=== PATIENT | female | born 1980 | race Two or more races ===

== ENCOUNTER 2017-11-30 19:34 | Emergency (ER) | payer MEDICAID ==
[~2017-11-30] VITALS: Ht 152.4 cm; Wt 89.8 kg
[2017-11-30] MEDS ORDERED: Phenazopyridine 200mg tab ORAL ONE (19:45)
[2017-11-30] MEDS ORDERED: NKM (19:45)
--- NOTE | 2017-11-30 19:58 | Emergency Room Report ---
History of Present Illness General Chief Complaint: Female Urogenital Problems Source: Patient Present Illness HPI 37 YO Female presents to the ED c/o 02/08 in severity Dysuria. Patient is currently taking course of ciprofloxacin 200 mg 2 days. Patient states she is continuing to have her symptoms and she is also noticing cloudy urine. She states that dysuria worsened today which is why she presented to the emergency department. She denies abdominal pain or tenderness denies nausea, vomiting, fevers or chills she also denies low back pain. She denies reports ovaries surgically removed. Denies vaginal discharge. reports some mild itching in the groin area started today. hx of yeast infections following abx use. Denies CP, Palpitations, LOC, AMS, dizziness, Changes in Vision, Sensation, paresthesias, or a sudden severe headache. Allergies: Coded Allergies: No Known Allergies (Unverified , 11/30/17) Patient History Past Medical History: see triage record Past Surgical History: none Pertinent Family History: none Last Menstrual Period: surgical menopause Reviewed Nursing Documentation: PMH: Agreed; PSxH: Agreed Nursing Documentation-PMH Hx Gastrointestinal Problems: Yes - KIDNEY STONE Review of Systems All Other Systems: negative except mentioned in HPI Physical Exam Vital Signs Date Time Temp Pulse Resp B/P (MAP) Pulse Ox O2 Delivery O2 Flow Rate FiO2 11/30/17 19:41 98.0 89 16 113/77 96 Room Air 98.1 Sp02 EP Interpretation: reviewed, normal General Appearance: no apparent distress, alert, GCS 15, non-toxic Head: normocephalic, atraumatic Eyes: bilateral eye normal inspection, bilateral eye PERRL ENT: hearing grossly normal, normal voice Neck: full range of motion Respiratory: lungs clear, normal breath sounds, speaking full sentences Cardiovascular #1: regular rate, rhythm Gastrointestinal: normal bowel sounds, non tender, soft, no guarding Genitourinary: normal inspection, no CVA tenderness, deferred - pt. declines pelvic exam Musculoskeletal: back normal, gait/station normal, normal range of motion, non- tender Neurologic: alert, oriented x3, responsive, motor strength/tone normal, sensory intact, normal gait, speech normal, grossly normal Psychiatric: judgement/insight normal Skin: normal color, no rash, warm/dry, well hydrated Medical Decision Making PA Attestation Dr. yoon is my supervising Physician whom patient management has been discussed with. Diagnostic Impression: Primary Impression: UTI (urinary tract infection) Qualified Codes: N30.00 - Acute cystitis without hematuria ER Course 37 YO Female presents to the ED c/o 02/08 in severity Dysuria. Patient is currently taking course of ciprofloxacin 200 mg 2 days. Patient states she is continuing to have her symptoms and she is also noticing cloudy urine. She states that dysuria worsened today which is why she presented to the emergency department. She denies abdominal pain or tenderness denies nausea, vomiting, fevers or chills she also denies low back pain. She denies reports ovaries surgically removed. Denies vaginal discharge. reports some mild itching in the groin area started today. hx of yeast infections following abx use. Denies CP, Palpitations, LOC, AMS, dizziness, Changes in Vision, Sensation, paresthesias, or a sudden severe headache. Ddx considered but are not limited to UTi , Pyelo, STI, Stone, Cystitis Vital signs: are WNL, pt. is afebrile H&PE are most consistent with UTI ORDERS: - UA labs are attached - Positive for UTI ED INTERVENTIONS: -Pyridium PO -- D/w pt. I will change her abx to Macrobid, and if her C&S testing shows resistance, she will be contacted and rx'd the appropriate abx. DISCHARGE: At this time pt. is stable for d/c to home. Will provide printed patient care instructions, and any necessary prescriptions. Care plan and follow up instructions have been discussed with the patient prior to discharge. Labs Test 11/30/17 19:50 Urine Color Pale yellow Urine Appearance Clear Urine pH 6 (4.5-8.0) Urine Specific [place] 1.015 (1.005-1.035) Urine Protein Negative (NEGATIVE) Urine Glucose (UA) Negative (NEGATIVE) Urine Ketones Negative (NEGATIVE) Urine Occult Blood 2+ (NEGATIVE) Urine Nitrite Negative (NEGATIVE) Urine Bilirubin Negative (NEGATIVE) Urine Urobilinogen Normal MG/DL (0.0-1.0) Urine Leukocyte Esterase 3+ (NEGATIVE) Urine RBC 5-10 /HPF (0 - 2) Urine WBC 10-15 /HPF (0 - 2) Urine Squamous Epithelial Cells Few /LPF (NONE/OCC) Urine Bacteria Moderate /HPF (NONE) Last Vital Signs Date Time Temp Pulse Resp B/P (MAP) Pulse Ox O2 Delivery O2 Flow Rate FiO2 11/30/17 19:41 98.0 89 16 113/77 96 Room Air 98.1 Disposition: HOME, SELF-CARE Condition: Stable Scripts Phenazopyridine Hcl* (PYRIDIUM*) 200 Mg Tablet 200 MG ORAL THREE TIMES A DAY for 3 Days, #15 TAB 0 Refills Prov: Cat Hector 11/30/17 Fluconazole (FLUCONAZOLE) 100 Mg Tablet 100 MG ORAL DAILY for 3 Days, #3 TAB 0 Refills Prov: Cat Hector. 11/30/17 Nitrofurantoin Monohyd/M-Cryst* (MACROBID 100 MG*) 100 Mg Capsule 100 MG ORAL EVERY 12 HOURS for 5 Days, #10 CAP Prov: Cat Hector. 11/30/17 Patient Instructions: Urinary Tract Infection Additional Instructions: Take medications as directed. Pyridium will cause your urine to change color (Red/[place]), this is a normal side effect of the medication. Follow up with a Primary Care Provider in 3-5 days, even if your symptoms have resolved. --Please review list of primary care clinics, if you do not already have a primary care provider Return sooner to ED if new symptoms occur, or current symptoms become worse. - Please note that this Emergency Department Report was dictated using [employer] technology software, occasionally this can lead to erroneous entry secondary to interpretation by the dictation equipment. Cta Hector Nov 30, 2017 19:58
[2017-11-30 20:04] VITALS: BP 113/77
[2017-11-30 20:09] LABS: APPEARANCE,URINE CLEAR; BILIRUBIN, URINE NEGATIVE (NEGATIVE); COLOR,URINE PALE YELLOW; GLUCOSE, URINE (UA) NEGATIVE (NEGATIVE); KETONES,URINE NEGATIVE (NEGATIVE); LEUKOCYTE ESTERASE ,URINE 3+ (NEGATIVE); NITRITE,URINE NEGATIVE (NEGATIVE); PH,URINE 6 (4.5-8.0); PROTEIN,URINE NEGATIVE (NEGATIVE); UROBILINOGEN,URINE NORMAL MG/DL (0.0-1.0)
[2017-11-30] MEDS ORDERED: PHENAZOPYRIDIN200 MG ORAL (20:30)
[2017-11-30] MEDS ORDERED: FLUCONAZOLE100 MG ORAL (20:30)
[2017-11-30] MEDS ORDERED: NITROFURANTOIN100 M2 ORAL (20:30)
[2017-11-30 20:35] VITALS: BP 113/77
== END 2017-11-30 20:35 | disposition home or self-care (01) ==
LOC: EMR 20:00
DX: N39.0 Urinary tract infection, site not specified (principal); Z87.442 Personal history of urinary calculi
CPT/HCPCS: 81003; 87086; 99284

== ENCOUNTER 2018-04-11 12:38 | Emergency (ER) | payer MEDICAID ==
[~2018-04-11] VITALS: Ht 152.4 cm; Wt 85.7 kg
[~2018-04-11 12:38] MED LIST: FLUCONAZOLE100 MG ORAL; NITROFURANTOIN100 M2 ORAL; NKM; PHENAZOPYRIDIN200 MG ORAL
[2018-04-11 13:00] VITALS: BP 111/75
[2018-04-11 13:14] LABS: BASOPHILS % (AUTO) 0.8 % (0.0-2.0); EOSINOPHILS % (AUTO) 0.9 % (0.0-3.0); HEMATOCRIT 39.4 % (37.0-47.0); HEMOGLOBIN 12.9 G/DL (12.0-16.0); LYMPHOCYTES % (AUTO) 30.8 % (20.0-45.0); MEAN CORPUSCULAR VOLUME 84 FL (80-99); MONOCYTES % (AUTO) 7.2 % (1.0-10.0); NEUTROPHILS % (AUTO) 60.3 % (45.0-75.0); PLATELET COUNT 296 K/UL (150-450); RED BLOOD COUNT 4.69 M/UL (4.20-5.40); RED CELL DISTRIBUTION WIDTH 11.5 % (11.6-14.8); WHITE BLOOD COUNT 6.9 K/UL (4.8-10.8)
[2018-04-11] MEDS ORDERED: Lidocaine 2% Visc 15ml soln ORAL ONE (13:15)
[2018-04-11] MEDS ORDERED: Mylanta II UD 30ml ORAL ONE (13:15)
[2018-04-11] MEDS ORDERED: Dicyclomine HCl 10mg/5ml oral soln ORAL ONE (13:15)
[2018-04-11 13:18] LABS: APPEARANCE,URINE CLEAR; BILIRUBIN, URINE NEGATIVE (NEGATIVE); GLUCOSE, URINE (UA) NEGATIVE (NEGATIVE); KETONES,URINE NEGATIVE (NEGATIVE); LEUKOCYTE ESTERASE ,URINE 2+ (NEGATIVE); NITRITE,URINE NEGATIVE (NEGATIVE); PH,URINE 5 (4.5-8.0); PROTEIN,URINE NEGATIVE (NEGATIVE); UROBILINOGEN,URINE NORMAL MG/DL (0.0-1.0)
[2018-04-11 13:19] LABS: COLOR,URINE YELLOW
[2018-04-11 13:24] LABS: ANION GAP 8 mmol/L (5-15); BLOOD UREA NITROGEN 13 mg/dL (7-18); CALCIUM 9.3 MG/DL (8.5-10.1); CARBON DIOXIDE 28 MMOL/L (21-32); CHLORIDE 103 MMOL/L (98-107); CREATININE 0.8 MG/DL (0.55-1.30); POTASSIUM 3.5 MMOL/L (3.5-5.1); SODIUM 139 MMOL/L (136-145)
[2018-04-11 13:28] LABS: ALANINE AMINOTRANSFERASE 24 U/L (12-78); ALBUMIN 3.7 G/DL (3.4-5.0); ALBUMIN/GLOBULIN RATIO 0.9 (1.0-2.7); ALKALINE PHOSPHATASE 66 U/L (46-116); ASPARTATE AMINO TRANSFERASE 16 U/L (15-37); BILIRUBIN,TOTAL 0.4 MG/DL (0.2-1.0)
[2018-04-11] MEDS ORDERED: ONDANSETRON ODT4 MG BC (13:48)
[2018-04-11] MEDS ORDERED: DICYCLOMINE HCL10 MG PO (13:48)
[2018-04-11] MEDS ORDERED: ZANTAC150 MG ORAL (13:48)
[2018-04-11 14:07] VITALS: BP 111/75
--- NOTE | 2018-04-13 23:21 | Emergency Room Report ---
History of Present Illness General Chief Complaint: Abdominal Pain Source: Patient Present Illness HPI 37-year-old female presents ED complaining of abdominal pain 3 days. Pain is cramping, 7 out of 10, nonradiating. Notes multiple episodes of vomiting and diarrhea. Denies recent travel. Denies recent antibiotic use. Denies fevers chills. Denies chest pain or shortness of breath. No other aggravating relieving factors. Denies any other associated symptoms Allergies: Coded Allergies: No Known Allergies (Unverified , 11/30/17) Patient History Past Medical History: none Past Surgical History: none Pertinent Family History: none Social History: Denies: smoking, alcohol use, drug use Last Menstrual Period: partial hystrectomy Now: No Immunizations: UTD Reviewed Nursing Documentation: PMH: Agreed; PSxH: Agreed Nursing Documentation-PMH Past Medical History: No Stated History Hx Gastrointestinal Problems: Yes - KIDNEY STONE Review of Systems All Other Systems: negative except mentioned in HPI Physical Exam Vital Signs Date Time Temp Pulse Resp B/P (MAP) Pulse Ox O2 Delivery O2 Flow Rate FiO2 04/11/18 12:43 98.3 62 14 136/75 99 Room Air 98.2 Sp02 EP Interpretation: reviewed, normal General Appearance: no apparent distress, alert, GCS 15, non-toxic Head: normocephalic, atraumatic Eyes: bilateral eye normal inspection, bilateral eye PERRL ENT: hearing grossly normal, normal pharynx, no angioedema, normal voice Neck: full range of motion, supple/symm/no masses Respiratory: chest non-tender, lungs clear, normal breath sounds, speaking full sentences Cardiovascular #1: regular rate, rhythm, no edema Cardiovascular #2: 2+ carotid (R), 2+ carotid (L), 2+ radial (R), 2+ radial (L) , 2+ dorsalis pedis (R), 2+ dorsalis pedis (L) Gastrointestinal: normal bowel sounds, non tender, soft, non-distended, no guarding, no rebound Rectal: deferred Genitourinary: normal inspection, no CVA tenderness Musculoskeletal: back normal, gait/station normal, normal range of motion, non- tender Neurologic: alert, oriented x3, responsive, motor strength/tone normal, sensory intact, speech normal Psychiatric: judgement/insight normal, memory normal, mood/affect normal, no suicidal/homicidal ideation Reflexes: 3+ bicep (R), 3+ bicep (L), 3+ tricep (R), 3+ tricep (L), 3+ knee (R) , 3+ knee (L) Skin: normal color, no rash, warm/dry, well hydrated Lymphatic: no adenopathy Medical Decision Making Diagnostic Impression: Primary Impression: Gastroenteritis ER Course Hospital Course 37-year-old F presents to ED with cramping abdominal pain with vomiting, diarrhea differential diagnosis: gastritis, SBO, cholecystits, gastroenteritis Clinical course Patient placed on stretcher. On telemetry monitor. After initial history and physical I ordered labs, IV fluids, zofran, pepcid and GI cocktail Labs - no leukocytosis, electrolytes ok, LFTs normal, UA unremarkable Upon reassessment, patient states pain has improved. findings consistent with gastroenteritis Discussed findings with patient. Safely discharged without close outpatient follow-up I feel this is a highly complex case requiring extensive working including EKG/ Rhythm strip, Xray/CT/US, Blood/urine lab work, repeat exams while in ED, and administration of strong opiates/narcotics for pain control, admission to hospital or close patient follow up. Diagnosis - gastroenteritis Stable and discharged to home with prescriptions for Zantac, bentyl, zofran. Followup with PMD. Return to ED if symptoms recur or worsen Labs Test 04/11/18 12:55 White Blood Count 6.9 K/UL (4.8-10.8) Red Blood Count 4.69 M/UL (4.20-5.40) Hemoglobin 12.9 G/DL (12.0-16.0) Hematocrit 39.4 % (37.0-47.0) Mean Corpuscular Volume 84 FL (80-99) Mean Corpuscular Hemoglobin 27.6 PG (27.0-31.0) Mean Corpuscular Hemoglobin Concent 32.8 G/DL (32.0-36.0) Red Cell Distribution Width 11.5 % (11.6-14.8) Platelet Count 296 K/UL (150-450) Mean Platelet Volume 7.5 FL (6.5-10.1) Neutrophils (%) (Auto) 60.3 % (45.0-75.0) Lymphocytes (%) (Auto) 30.8 % (20.0-45.0) Monocytes (%) (Auto) 7.2 % (1.0-10.0) Eosinophils (%) (Auto) 0.9 % (0.0-3.0) Basophils (%) (Auto) 0.8 % (0.0-2.0) Urine Color Yellow Urine Appearance Clear Urine pH 5 (4.5-8.0) Urine Specific [place] 1.025 (1.005-1.035) Urine Protein Negative (NEGATIVE) Urine Glucose (UA) Negative (NEGATIVE) Urine Ketones Negative (NEGATIVE) Urine Blood 3+ (NEGATIVE) Urine Nitrite Negative (NEGATIVE) Urine Bilirubin Negative (NEGATIVE) Urine Urobilinogen Normal MG/DL (0.0-1.0) Urine Leukocyte Esterase 2+ (NEGATIVE) Urine RBC 0-2 /HPF (0 - 2) Urine WBC 0-2 /HPF (0 - 2) Urine Squamous Epithelial Cells Occasional /LPF Urine Bacteria Occasional /HPF (NONE) Urine HCG, Qualitative Negative (NEGATIVE) Sodium Level 139 MMOL/L (136-145) Potassium Level 3.5 MMOL/L (3.5-5.1) Chloride Level 103 MMOL/L (98-107) Carbon Dioxide Level 28 MMOL/L (21-32) Anion Gap 8 mmol/L (5-15) Blood Urea Nitrogen 13 mg/dL (7-18) Creatinine 0.8 MG/DL (0.55-1.30) Estimat Glomerular Filtration Rate > 60 mL/min (>60) Glucose Level 129 MG/DL (74-106) Calcium Level 9.3 MG/DL (8.5-10.1) Total Bilirubin 0.4 MG/DL (0.2-1.0) Aspartate Amino Transf (AST/SGOT) 16 U/L (15-37) Alanine Aminotransferase (ALT/SGPT) 24 U/L (12-78) Alkaline Phosphatase 66 U/L (46-116) Total Protein 7.9 G/DL (6.4-8.2) Albumin 3.7 G/DL (3.4-5.0) Globulin 4.2 g/dL Albumin/Globulin Ratio 0.9 (1.0-2.7) Lipase 115 U/L (73-393) Last Vital Signs Date Time Temp Pulse Resp B/P (MAP) Pulse Ox O2 Delivery O2 Flow Rate FiO2 04/11/18 14:07 98.2 60 14 111/75 99 Room Air 98.2 Status: improved Disposition: HOME, SELF-CARE Condition: Stable Scripts Dicyclomine Hcl* (DICYCLOMINE HCL*) 10 Mg Capsule 10 MG PO QID, #20 CAP Prov: Seth Barron MD 04/11/18 Ondansetron Odt* (ZOFRAN ODT*) 4 Mg Tab.rapdis 4 MG BC EVERY 6 HOURS PRN for Nausea & Vomiting, #10 TAB 0 Refills Prov: Seth Barron MD 04/11/18 Ranitidine Hcl* (ZANTAC*) 150 Mg Tablet 150 MG ORAL DAILY, #30 TAB 0 Refills Prov: Seth Barron MD 04/11/18 Patient Instructions: Viral Gastroenteritis, Adult, [id number] Seth Barron MD Apr 13, 2018 23:21
== END 2018-04-11 14:07 | disposition home or self-care (01) ==
LOC: EMR 13:23
DX: K52.9 Noninfective gastroenteritis and colitis, unspecified (principal); R10.9 Unspecified abdominal pain; Z90.711 Acquired absence of uterus with remaining cervical stump
CPT/HCPCS: 36415; 80053; 81003; 81025; 83690; 85025; 96361; 96374; 96375; 99284; J2405; S0028

== ENCOUNTER 2018-05-08 20:37 | Emergency (ER) | payer MEDICAID ==
[~2018-05-08] VITALS: Ht 152.4 cm; Wt 89.8 kg
[~2018-05-08 20:37] MED LIST changes: +DICYCLOMINE HCL10 MG PO; +ONDANSETRON ODT4 MG BC; +ZANTAC150 MG ORAL
--- NOTE | 2018-05-08 21:12 | Emergency Room Report ---
History of Present Illness General Chief Complaint: Abdominal Pain Source: Patient Present Illness HPI Is a 37-year-old female with a history of section and hysterectomy. She also history of kidney stone. She presents with chief complaint of sharp right flank pain starting this afternoon. Intermittently. Pain is 9 out of 10. Lasting a few seconds to minutes. Minimal pain now. No nausea no vomiting. No fever or chills. Started in the right upper back going down to the flank area. No urinary complaint. Allergies: Coded Allergies: No Known Allergies (Unverified , 11/30/17) Patient History Past Medical History: see triage record, old chart reviewed Past Surgical History: none, , hysterectomy Pertinent Family History: none Social History: Denies: smoking Last Menstrual Period: n/a Now: No Immunizations: other Reviewed Nursing Documentation: PMH: Agreed; PSxH: Agreed Nursing Documentation-PMH Past Medical History: No History, Except For Hx Gastrointestinal Problems: Yes - KIDNEY STONE Review of Systems Eye: Denies: eye pain, blurred vision ENT: Denies: ear pain, nose congestion, throat swelling Respiratory: Denies: cough, shortness of breath Cardiovascular: Denies: chest pain, palpitations Gastrointestinal: Reports: abdominal pain; Denies: diarrhea, nausea, vomiting Musculoskeletal: Denies: back pain, joint pain Skin: Denies: rash Neurological: Denies: headache, numbness Endocrine: Denies: increased thirst, increased urine Hematologic/Lymphatic: Denies: easy bruising All Other Systems: negative except mentioned in HPI Physical Exam Vital Signs Date Time Temp Pulse Resp B/P (MAP) Pulse Ox O2 Delivery O2 Flow Rate FiO2 05/08/18 20:56 98.4 73 16 122/90 95 Room Air vitals normal Sp02 EP Interpretation: reviewed, normal General Appearance: well appearing, no apparent distress, alert Head: normocephalic, atraumatic Eyes: bilateral eye PERRL, bilateral eye EOMI ENT: hearing grossly normal, normal pharynx Neck: full range of motion, supple, no meningismus Respiratory: chest non-tender, lungs clear, normal breath sounds Cardiovascular #1: regular rate, rhythm, no murmur Gastrointestinal: normal bowel sounds, non tender, no mass, no organomegaly, no bruit, non-distended Musculoskeletal: back normal, gait/station normal, normal range of motion Psychiatric: mood/affect normal Skin: warm/dry Medical Decision Making Diagnostic Impression: Primary Impression: UTI (urinary tract infection) Qualified Codes: N30.00 - Acute cystitis without hematuria Additional Impression: Flank pain ER Course Patient with right flank pain. No evidence of ureteral stone. She does have hematuria in her urine and possible infection. This may be secondary to UTI/ hematuria versus passed kidney stone. She looks comfortable. No evidence of any gallbladder issue. No evidence any sepsis. We'll discharge home. CT/MRI/US Diagnostic Results CT/MRI/US Diagnostic Results : Imaging Test Ordered: CT abdomen and pelvis Impression read by radiologist. Tiny nonobstructing rt kidney stone Last Vital Signs Date Time Temp Pulse Resp B/P (MAP) Pulse Ox O2 Delivery O2 Flow Rate FiO2 05/08/18 20:56 98.4 73 16 122/90 95 Room Air Status: improved Disposition: HOME, SELF-CARE Condition: Stable Scripts Ibuprofen* (MOTRIN*) 600 Mg Tablet 600 MG ORAL THREE TIMES A DAY, #30 TAB 0 Refills Prov: Jose Guadalupe Hoffman MD 05/08/18 Cephalexin* (KEFLEX*) 500 Mg Capsule 500 MG ORAL THREE TIMES A DAY PRN for id, #21 CAP Prov: Jsoe Guadalupe Hoffman MD 05/08/18 Referrals: NOT CHOSEN IPA/,REFERRING (PCP) Patient Instructions: Abdominal Pain, Adult Additional Instructions: Follow-up with your doctor in 2-3 days. Return of worse. Jose Guadalupe Hoffman MD May 08, 2018 21:12
[2018-05-08 21:22] LABS: APPEARANCE,URINE CLOUDY; BILIRUBIN, URINE NEGATIVE (NEGATIVE); COLOR,URINE PALE YELLOW; GLUCOSE, URINE (UA) NEGATIVE (NEGATIVE); KETONES,URINE NEGATIVE (NEGATIVE); LEUKOCYTE ESTERASE ,URINE 2+ (NEGATIVE); NITRITE,URINE NEGATIVE (NEGATIVE); PH,URINE 7 (4.5-8.0); PROTEIN,URINE 2+ (NEGATIVE); UROBILINOGEN,URINE NORMAL MG/DL (0.0-1.0)
[2018-05-08] MEDS ORDERED: Cephalexin 500mg cap ORAL ONE (22:00)
[2018-05-08] MEDS ORDERED: CEPHALEXIN500 MG ORAL (22:11)
[2018-05-08] MEDS ORDERED: IBUPROFEN600 MG ORAL (22:11)
[2018-05-08 22:15] VITALS: BP 124/78
[2018-05-08 22:25] VITALS: BP 124/78
--- NOTE | 2018-05-09 08:45 | Diagnostic Imaging Report ---
Indication: Abdominal pain Technique: Continuous helical transaxial imaging of the abdomen and pelvis was obtained from the lung bases to the pubic symphysis. No intravenous contrast was administered. Coronal 2-D reformats were also obtained. Automatic Exposure Control was utilized. Total Dose length Product (DLP): 1132.[address] Dose Index Volume (CTDIvol): 19.75 mGy Comparison: none Findings: The lung bases are clear. Cardiomegaly is present. There is a small hiatal hernia. Gallbladder is contracted. Tiny nonobstructive stones demonstrated in the right kidney. There is no hydronephrosis. Appendix is normal. There is no free fluid or free air. The bladder is nondistended. IMPRESSION: Nonobstructive nephrolithiasis in the right kidney. Normal appendix. Other incidental findings as above The CT scanner at [facility] is accredited by the [employer] and the scans are performed using dose optimization techniques as appropriate to a performed exam including Automatic Exposure control.
== END 2018-05-08 22:29 | disposition home or self-care (01) ==
LOC: EMR 20:52
DX: N30.00 Acute cystitis without hematuria (principal); Z87.442 Personal history of urinary calculi; Z90.710 Acquired absence of both cervix and uterus
CPT/HCPCS: 74176; 81003; 81025; 87086; 87181; 99284

== ENCOUNTER 2018-07-05 17:19 | Emergency (ER) | payer MEDICAID ==
[~2018-07-05] VITALS: Ht 157.5 cm; Wt 85.7 kg
[~2018-07-05 17:19] MED LIST changes: +CEPHALEXIN500 MG ORAL; +IBUPROFEN600 MG ORAL
[2018-07-05 17:35] VITALS: BP 111/80
[2018-07-05] MEDS ORDERED: NKM (17:35)
--- NOTE | 2018-07-05 17:35 | NUR ---
ED Nurse Note: A/OX4. Ambulated in to ER due to bodyache, runny nose and coughing for one week and also c/o burning urination and lower back pain.
[2018-07-05] MEDS ORDERED: Phenazopyridine 200mg tab ORAL ONE (17:45)
[2018-07-05 18:11] LABS: APPEARANCE,URINE SLIGHTLY CLOUDY; BILIRUBIN, URINE NEGATIVE (NEGATIVE); COLOR,URINE PALE YELLOW; GLUCOSE, URINE (UA) NEGATIVE (NEGATIVE); KETONES,URINE NEGATIVE (NEGATIVE); LEUKOCYTE ESTERASE ,URINE 2+ (NEGATIVE); NITRITE,URINE POSITIVE (NEGATIVE); PH,URINE 6 (4.5-8.0); PROTEIN,URINE NEGATIVE (NEGATIVE); UROBILINOGEN,URINE NORMAL MG/DL (0.0-1.0)
--- NOTE | 2018-07-05 18:12 | Emergency Room Report ---
History of Present Illness General Chief Complaint: Flu Like Symptoms Source: Patient, Medical Record Present Illness HPI 38-year-old female presents to the emergency department complaining of 7 out of 10 in severity body aches, cough, sore throat and pressure in the left ear times one week. Patient also reports some chills she denies fevers. Patient states that 2 days ago she began having dysuria as she denies hematuria she does report urinary frequency she denies urgency, abdominal pain, nausea or vomiting. Patient denies . Denies neck pain/stiffness, irritability, photophobia dehydration, Pt. reports nasal congestion and sinus pressure as well. Allergies: Coded Allergies: No Known Allergies (Unverified , 11/30/17) Patient History Past Medical History: see triage record Past Surgical History: none Pertinent Family History: none Now: No Reviewed Nursing Documentation: PMH: Agreed; PSxH: Agreed Nursing Documentation-PMH Hx Gastrointestinal Problems: Yes - KIDNEY STONE Review of Systems All Other Systems: negative except mentioned in HPI Physical Exam Vital Signs Date Time Temp Pulse Resp B/P (MAP) Pulse Ox O2 Delivery O2 Flow Rate FiO2 07/05/18 17:30 98.2 61 16 111/80 99 Room Air Sp02 EP Interpretation: reviewed, normal General Appearance: no apparent distress, alert, GCS 15, non-toxic Head: normocephalic, atraumatic Eyes: bilateral eye normal inspection, bilateral eye PERRL ENT: hearing grossly normal, normal pharynx, normal voice, TMs + canals normal , uvula midline, moist mucus membranes, nasal congestion, pharyngeal erythema, other - no tonsillar exudates Neck: full range of motion, no meningismus Respiratory: chest non-tender, lungs clear, normal breath sounds, no respiratory distress, no accessory muscle use, no wheezing, speaking full sentences Cardiovascular #1: regular rate, rhythm Gastrointestinal: normal bowel sounds, non tender, soft Genitourinary: normal inspection, no CVA tenderness Musculoskeletal: back normal, gait/station normal, normal range of motion, non- tender Neurologic: alert, oriented x3, responsive, motor strength/tone normal, sensory intact, speech normal, grossly normal Psychiatric: judgement/insight normal Skin: normal color, no rash, warm/dry, well hydrated Lymphatic: no adenopathy Medical Decision Making PA Attestation Dr. yoon is my supervising Physician whom patient management has been discussed with. Diagnostic Impression: Primary Impression: UTI (urinary tract infection) Qualified Codes: N30.01 - Acute cystitis with hematuria Additional Impression: URI with cough and congestion ER Course 38-year-old female presents to the emergency department complaining of 7 out of 10 in severity body aches, cough, sore throat and pressure in the left ear times one week. Patient also reports some chills she denies fevers. Patient states that 2 days ago she began having dysuria as she denies hematuria she does report urinary frequency she denies urgency, abdominal pain, nausea or vomiting. Patient denies . Denies neck pain/stiffness, irritability, photophobia dehydration, Pt. reports nasal congestion and sinus pressure as well. Ddx considered but are not limited to URI, pneumonia, PE, strep pharyngitis, meningitis,UTI, [place] just to name a few Vital signs: Pt. is afebrile, the remaining VS are WNL H&PE are most consistent with URI- no meningeal signs, oropharynx is not involved, no evidence of bacterial infection at this time. ORDERS: -UA: Nitrite Positive ED INTERVENTIONS: None required at this time. DISCHARGE: At this time pt. is stable for d/c to home. Will provide printed patient care instructions, and any necessary prescriptions. Care plan and follow up instructions have been discussed with the patient prior to discharge. Labs Test 07/05/18 17:45 Urine Color Pale yellow Urine Appearance Slightly cloudy Urine pH 6 (4.5-8.0) Urine Specific [place] 1.025 (1.005-1.035) Urine Protein Negative (NEGATIVE) Urine Glucose (UA) Negative (NEGATIVE) Urine Ketones Negative (NEGATIVE) Urine Blood Negative (NEGATIVE) Urine Nitrite Positive (NEGATIVE) Urine Bilirubin Negative (NEGATIVE) Urine Urobilinogen Normal MG/DL (0.0-1.0) Urine Leukocyte Esterase 2+ (NEGATIVE) Urine HCG, Qualitative Negative (NEGATIVE) Last Vital Signs Date Time Temp Pulse Resp B/P (MAP) Pulse Ox O2 Delivery O2 Flow Rate FiO2 07/05/18 17:35 98.2 60 16 111/80 99 Room Air Disposition: HOME, SELF-CARE Condition: Stable Scripts Nitrofurantoin Monohyd/M-Cryst* (MACROBID 100 MG*) 100 Mg Capsule 100 MG ORAL EVERY 12 HOURS for 5 Days, #10 CAP Prov: Hector,Cat PA 07/05/18 Guaifenesin (Guaifenesin) 1,200 Mg Tab.er.12h 1200 MG PO Q12HR for 7 Days, #14 TAB Prov: Cat Hector 07/05/18 Phenazopyridine Hcl* (PYRIDIUM*) 200 Mg Tablet 200 MG ORAL THREE TIMES A DAY for 2 Days, #6 TAB 0 Refills Prov: Cat Hector 07/05/18 Acetaminophen* (TYLENOL EXTRA STRENGTH*) 500 Mg Tablet 500 MG ORAL Q6H, #20 TAB 0 Refills Prov: Cat Hector 07/05/18 Benzonatate* (TESSALON PERLE*) 100 Mg Capsule 100 MG ORAL THREE TIMES A DAY, #30 PERLE Prov: Cat Hector 07/05/18 Cetirizine Hcl/Pseudoephedrine (ZYRTEC-D TABLET) 1 Each Tab.er.12h 1 EACH ORAL Q12HR for 7 Days, #14 TAB Prov: Cat Hector 07/05/18 Codeine/Promethazine Hcl* (PROMETHAZINE-CODEINE SYRUP*) 118 Ml Syrup 5 ML ORAL Q6H PRN for For Cough, #120 ML 0 Refills Prov: Cat Hector 07/05/18 Departure Forms: Return to Work Return to Work in (Days): 3 Return to Work Date: Jul 09, 2018 Work Restrictions: None Other Restrictions: May return Sooner if Symptoms have resolved. Return to Full Activity: Jul 09, 2018 Patient Instructions: Urinary Tract Infection, [id number] Additional Instructions: Take medications as directed. Follow up with a Primary Care Provider in 3-5 days, even if your symptoms have resolved. --Please review list of primary care clinics, if you do not already have a primary care provider Return sooner to ED if new symptoms occur, or current symptoms become worse. Do not drink alcohol, drive, or operate heavy machinery while taking Cough Syrup as this may cause drowsiness. - Please note that this Emergency Department Report was dictated using [employer] technology software, occasionally this can lead to erroneous entry secondary to interpretation by the dictation equipment. Cat Hector Jul 05, 2018 18:12
[2018-07-05] MEDS ORDERED: TYLENOL EXTRA500 MG ORAL (18:22)
[2018-07-05] MEDS ORDERED: ZYRTEC-D TABLE1 EACH ORAL (18:22)
[2018-07-05] MEDS ORDERED: TESSALON PERLE100 MG ORAL (18:22)
[2018-07-05] MEDS ORDERED: PROMETHAZINE-C118 M1 ORAL (18:22)
[2018-07-05] MEDS ORDERED: PHENAZOPYRIDIN200 MG ORAL (18:22)
[2018-07-05] MEDS ORDERED: GUAIFENESIN1200 MG PO (18:26)
[2018-07-05 18:32] VITALS: BP 111/80
[2018-07-05] MEDS ORDERED: NITROFURANTOIN100 M2 ORAL (18:33)
--- NOTE | 2018-07-05 18:33 | NUR ---
ED Nurse Note: A/Ox4. Pt is cleared by NICO Shelton. DC instruction and prescription given, pt verbalized understanding. ID wrist band removed. Denies any pain at this time. All belongings taken by pt. Pt ambulated out of ER with steady gait.
== END 2018-07-05 18:35 | disposition home or self-care (01) ==
LOC: EMR 18:23
DX: J06.9 Acute upper respiratory infection, unspecified (principal); N30.01 Acute cystitis with hematuria; Z87.442 Personal history of urinary calculi
CPT/HCPCS: 81003; 81025; 87086; 87181; 99283

== ENCOUNTER 2018-08-20 17:59 | Emergency (ER) | payer MEDICAID ==
[~2018-08-20] VITALS: Ht 152.4 cm; Wt 85.7 kg
[~2018-08-20 17:59] MED LIST changes: +GUAIFENESIN1200 MG PO; +PROMETHAZINE-C118 M1 ORAL; +TESSALON PERLE100 MG ORAL; +TYLENOL EXTRA500 MG ORAL; +ZYRTEC-D TABLE1 EACH ORAL
[2018-08-20 18:03] VITALS: BP 105/69
[2018-08-20] MEDS ORDERED: NKM (18:06)
--- NOTE | 2018-08-20 18:13 | NUR ---
ED Nurse Note: Pt came in due to headache, sore throat and body ache and ear ache x 4 days. No nausea and vomiting.
[2018-08-20] MEDS ORDERED: Ketorolac 30mg Inj IM ONE (18:30)
--- NOTE | 2018-08-20 18:39 | Emergency Room Report ---
History of Present Illness General Chief Complaint: Flu Like Symptoms Source: Patient Present Illness HPI 38-year-old female patient presents the ER with multiple complaints. Patient complaining of headache for the past 4 days. Patient reports that headache over her bilateral frontal sinuses and now all over her head. Denies fever, chest pain, shortness of breath. Denies vomiting or vision changes. Reports headache was slow in onset. Denies thunderclap BAEZ. States has been taking Motrin without relief of symptoms. Reports history of sinus infection however states that this feels worse. Also complaining of bilateral earache and sore throat. Denies cough. Denies abdominal pain. Denies bowel or bladder continence. Also complains of possible UTI. Reports mild discomfort with urination. Denies , reports history of hysterectomy. Denies vaginal discharge. Denies hematuria. Denies vomiting or diarrhea. States did not receive flu vaccine this year. Denies other aggravating or relieving factors. Denies tinnitus. Allergies: Coded Allergies: No Known Allergies (Unverified , 08/20/18) Patient History Past Medical History: see triage record Last Menstrual Period: 3 YEARS AGO Now: No - S/P HYSTERECTOMY Reviewed Nursing Documentation: PMH: Agreed; PSxH: Agreed Nursing Documentation-PMH Past Medical History: No Stated History Hx Gastrointestinal Problems: Yes - KIDNEY STONE Review of Systems All Other Systems: negative except mentioned in HPI Physical Exam Vital Signs Date Time Temp Pulse Resp B/P (MAP) Pulse Ox O2 Delivery O2 Flow Rate FiO2 08/20/18 18:03 98.1 73 16 105/69 96 Room Air Sp02 EP Interpretation: reviewed, normal General Appearance: well appearing, no apparent distress, alert, GCS 15, non- toxic Head: normocephalic, atraumatic, other - Frontal and maxillary sinuses tender to palpation bilaterally Eyes: bilateral eye normal inspection, bilateral eye PERRL ENT: hearing grossly normal, normal pharynx, no angioedema, normal voice, TMs + canals normal, uvula midline, moist mucus membranes Neck: full range of motion, no meningismus, no bony tend Respiratory: lungs clear, normal breath sounds, no rhonchi, no respiratory distress, no accessory muscle use, no wheezing, speaking full sentences Cardiovascular #1: regular rate, rhythm, no edema Gastrointestinal: normal bowel sounds, non tender, soft, no mass, non-distended , no guarding, no rebound Genitourinary: no CVA tenderness Neurologic: alert, oriented x3, responsive, automatic beam warper tender III-XII nml as tested, motor strength/tone normal, SLR negative, sensory intact, cerebellar normal, normal gait, speech normal Skin: no rash Medical Decision Making PA Attestation Dr. Baig is my supervising Physician whom patient management has been discussed with. Diagnostic Impression: Primary Impression: Sinusitis Additional Impressions: Headache Urinary tract infection Sore throat ER Course Pt presents to ED c/o dysuria, headache, sore throat, earache. DDX considered but are not limited to cystitis, pyelonephritis, yeast infection , otitis media, otitis externa, migraine, tension headache, cluster headache sinusitis, sinus headache, URI, influenza, step throat, pharyngitis, laryngitis. No abdominal TTP, negative obturator, negative Duran, negative Rovsing, low suspicion for cholecystitis or appendicitis, does not require imaging or labs at this time. No focal neuro deficits, cranial nerves intact as tested, denies sudden onset or thunderclap headache, low suspicion for SAH, does not require CT head at this time. Negative Kernig, negative Brudzinski, no fever, low suspicion for meningitis. VITAL SIGNS are WNL, patient is afebrile. Ordered UA. ER COURSE Provide with Toradol, Benadryl, Reglan for headache symptoms. Frontal maxillary sinuses tender palpation, likely cluster headache, will provide patient with medication to treat. Low suspicion for peritonsillar abscess, no neck stiffness, no hot potato voice , no stridor. Physical exam shows no tonsillar swelling, no exudates, no LAD, hx of cough, no fever, low suspicion for Strep Throat per [facility] criteria. Does not require abx at this time. Salt water gargles. UA results show elevated WBCs and bacteria, indicate UTI, will treat with abx. If concern for STI, followup with STI clinic for testing and treatment. Denies STI concern. Patient is resting comfortably in chair, nontoxic appearing, in no acute distress. Patient states they feel better and is ready to go home. Patient reports pain symptoms improve while in the ER. Okay for outpatient follow-up and treatment. DISCHARGE Patient is stable for discharge. Patient resting comfortably, in no acute distress, nontoxic appearing, talking without difficulty. Will provide with patient care instructions and any necessary prescriptions. Patient understands and agrees to treatment plan. Patient encouraged to drink plenty of fluids. Patient to take medication as instructed. Care plan and follow-up instructions provided. Patient questions asked and answered. Reports understanding and agreement to treatment plan. Patient instructed to follow-up with primary care provider in 3 - 5 days. ER precautions given. Patient instructed to return to ER immediately for any new or worsening of symptoms. Including but not limited to fever, abdominal pain , intractable vomiting. - Please note that this Emergency Department Report was dictated using [employer] operator [employer]in[employer] technology software, occasionally this can lead to erroneous entry secondary to interpretation by the dictation equipment. Labs Test 08/20/18 18:47 Urine Color Pale yellow Urine Appearance Clear Urine pH 5 (4.5-8.0) Urine Specific [place] 1.020 (1.005-1.035) Urine Protein Negative (NEGATIVE) Urine Glucose (UA) Negative (NEGATIVE) Urine Ketones Negative (NEGATIVE) Urine Blood Negative (NEGATIVE) Urine Nitrite Negative (NEGATIVE) Urine Bilirubin Negative (NEGATIVE) Urine Urobilinogen Normal MG/DL (0.0-1.0) Urine Leukocyte Esterase 2+ (NEGATIVE) Urine RBC 0-2 /HPF (0 - 2) Urine WBC 5-10 /HPF (0 - 2) Urine Squamous Epithelial Cells Few /LPF (NONE/OCC) Urine Bacteria Moderate /HPF (NONE) Last Vital Signs Date Time Temp Pulse Resp B/P (MAP) Pulse Ox O2 Delivery O2 Flow Rate FiO2 08/20/18 18:03 98.1 73 16 105/69 96 Room Air Status: improved Disposition: HOME, SELF-CARE Condition: Stable Scripts Fluticasone Propionate (Flonase Allergy Relief) 9.9 Ml [place].susp 9.9 ML NS BID, #9.9 ML Prov: Dedrick Sheppard 08/20/18 Loratadine (CLARITIN) 10 Mg Tab.rapdis 10 MG ORAL DAILY, #30 TAB Prov: Dedrick Sheppard.A. 08/20/18 Aspirin/Acetaminophen/Caffeine (EXCEDRIN MIGRAINE CAPLET) 1 Each Tablet 1 EACH PO TID, #30 TAB Prov: Dedrick Sheppard.A. 08/20/18 Cephalexin* (KEFLEX*) 500 Mg Capsule 500 MG ORAL EVERY 12 HOURS, #14 CAP 0 Refills Prov: Dedrick Sheppard 08/20/18 Referrals: NON PHYSICIAN (PCP) Patient Instructions: Earache, General Headache Without Cause, [id number], Sinus Headache, Sinusitis, Adult, [id number], Sore Throat, [id number], Urinary Tract Infection, [id number] Additional Instructions: Followup with primary care provider in 3 -5 days. Discuss referral to neurology. Take Tylenol for pain and fever symptoms. Salt water gargles for sore throat. Drink plenty of water. Take medications as directed. Patient questions asked and answered. ER precautions given, patient instructed to return to ER immediately for any new or worsening of symptoms including but not limited to intractable vomiting, difficulty breathing, inability to eat. Dedrick Sheppard Aug 20, 2018 18:39
[2018-08-20 18:59] LABS: APPEARANCE,URINE CLEAR; BILIRUBIN, URINE NEGATIVE (NEGATIVE); COLOR,URINE PALE YELLOW; GLUCOSE, URINE (UA) NEGATIVE (NEGATIVE); KETONES,URINE NEGATIVE (NEGATIVE); LEUKOCYTE ESTERASE ,URINE 2+ (NEGATIVE); NITRITE,URINE NEGATIVE (NEGATIVE); PH,URINE 5 (4.5-8.0); PROTEIN,URINE NEGATIVE (NEGATIVE); UROBILINOGEN,URINE NORMAL MG/DL (0.0-1.0)
--- NOTE | 2018-08-20 19:19 | NUR ---
HAND-OFF: Report given to Raissa HAWKINS.
[2018-08-20] MEDS ORDERED: FLONASE ALLERG9.9 ML NS (19:21)
[2018-08-20] MEDS ORDERED: EXCEDRIN MIGRA1 EAC1 PO (19:21)
[2018-08-20] MEDS ORDERED: CLARITIN10 M1 ORAL (19:21)
[2018-08-20] MEDS ORDERED: CEPHALEXIN500 MG ORAL (19:21)
--- NOTE | 2018-08-20 19:33 | NUR ---
ED Nurse Note: pt dc per ermd order, pt is aox4, pt dc and prscription instructions given pt verablized understaing pt is id band removed and iv site dc, pt took all belongings pt is abl;e to ambulate with steady gait
[2018-08-20 19:34] VITALS: BP 105/69
== END 2018-08-20 19:32 | disposition home or self-care (01) ==
LOC: EMR 18:21
DX: J32.9 Chronic sinusitis, unspecified (principal); R51 Headache; N39.0 Urinary tract infection, site not specified; J02.9 Acute pharyngitis, unspecified
CPT/HCPCS: 81003; 87086; 96372; 99283; J1885